=== PATIENT | female | born 1970 | race Caucasian/White ===

== ENCOUNTER 2023-10-18 09:39 | Emergency (ER) | payer BC, SELFPAY ==
[2023-10-18 09:52] VITALS: BP 149/79; PULSE 93; RESP 16; TEMP 38.7; O2SAT 98
--- NOTE | 2023-10-18 10:06 | ED.URI ---
HPI - URI/Sore Throat General Chief Complaint: Upper Respiratory Infection Stated Complaint: Sinus/Bodyaches Time Seen by Provider: 10/18/23 10:06 Source: patient and RN notes reviewed Mode of arrival: ambulatory Limitations: no limitations History of Present Illness HPI Narrative: 53-year-old female presented for complaint of cough, body aches, fevers and chills. Onset yesterday. Took ibuprofen this morning. He has been with similar symptoms. She denies shortness of breath, wheezing, nausea, vomiting, diarrhea. MD elicited complaint: cough Related Data Home Medications Medication Instructions Recorded Confirmed clonazepam 0.5 mg tablet mg 10/18/23 irbesartan 75 mg tablet mg 10/18/23 Allergies Allergy/AdvReac Type Severity Reaction Status Date / Time metoclopramide [From Reglan] Allergy Unknown Verified 10/18/23 09:57 doxycycline AdvReac Unknown Verified 10/18/23 09:57 theophylline AdvReac Vomiting Verified 10/18/23 09:56 Review of Systems Review of Systems: CONSTITUTIONAL: Endorses malaise, chills, sweats, fever EYES: Denies visual changes, redness, or discharge ENT: Reports rhinorrhea, Denies otalgia, sore throat CARDIOVASCULAR: Denies chest pain, palpitations, edema RESPIRATORY: Reports cough, Denies dyspnea GASTROINTESTINAL: Denies abdominal pain, nausea, vomiting, diarrhea SKIN: Denies rash or itching MUSCULOSKELETAL: Endorses myalgia NEUROLOGIC: Endorses headache PMF Past Medical History Medical History (Updated 10/18/23 @ 10:16 by Mica Lucero, TRACY) Hypertension Exam Narrative: GENERAL: mildly Ill-appearing, nontoxic no acute distress. EYES: PERRLA, conjunctivae clear ENT: Mucous membranes moist. TM pearly mendoza with dull light reflex bilaterally; no tragal tenderness. no drooling, no hoarseness, no trismus, uvula midline. No tripod positioning, muffled voice, soft palate or pharyngeal wall bulging NECK: Supple. No lymphadenopathy CHEST: Clear to auscultation, breath sounds equal. No wheezing, rhonchi, rales, or stridor. No respiratory distress, speaks in full sentences. HEART: Regular rate and rhythm. No murmur heard. SKIN: Warm, dry, no rash. NEURO: Alert and oriented x3. PSYCH: Normal mood and affect Course Course Emergency Course: Patient is aware of diagnosis, understands and agrees to treatment plan. Anticipatory guidance given. Patient agrees to follow-up as directed and is aware of reasons to seek care at the emergency department. Portions of this record may have been created with voice recognition software Level of Care: Express Care Visit Vital Signs Vital signs: Vital Signs Temperature 101.6 F H 10/18/23 09:52 Pulse Rate 93 10/18/23 09:52 Respiratory Rate 16 10/18/23 09:52 Blood Pressure 149/79 H 10/18/23 09:52 Pulse Oximetry 98 10/18/23 09:52 Oxygen Delivery Room Air 10/18/23 09:52 Temperature 101.6 F H 10/18/23 10:11 Pulse Rate 93 10/18/23 09:52 Respiratory Rate 16 10/18/23 09:52 Blood Pressure 149/79 H 10/18/23 09:52 Pulse Oximetry 98 10/18/23 09:52 Oxygen Delivery Room Air 10/18/23 09:52 reviewed MDM - URI/Sore Throat MDM Narrative Medical decision making narrative: FLU A POS. Discussed physical exam findings. Provided risks/benefits of tamiflu, she requests Rx. Advised supportive measures and signs/symptoms to go to the ER. Pt is appropriate for outpt treatment and f/u. Differential Diagnosis Differential diagnosis: Likely upper respiratory infection, sinusitis and viral infection Lab Data Labs: Influenza A Screen Positive Reference Range: Negative Influenza B Screen Negative Reference Range: Negative Discharge Plan Discharge Clinical Impression: Influenza Patient Disposition: Home, Self-Care Condition: Stable Instructions: Antibiotic Form, Influ
[2023-10-18 10:11] VITALS: TEMP 38.7
[2023-10-18] MEDS: ACETAMINOPHEN 500 MG TABLET 1000 MG PO (10:11)
[2023-10-18 10:36] VITALS: TEMP 37.5
== END 2023-10-18 10:36 | disposition home or self-care (01) ==
PROVIDERS: Emergency Provider Nurse Practitioner Family
DX: J11.1 Influenza due to unidentified influenza virus with other respiratory manifestations (principal); I10 Essential (primary) hypertension; Z79.899 Other long term (current) drug therapy
CPT/HCPCS: 87804; 99213; A9270; G0463

== ENCOUNTER 2024-09-16 12:20 | Emergency (ER) | payer BC, SELFPAY ==
--- NOTE | ~2024-09-16 | XR_ITS ---
Clinical Indication: Cough PA and lateral views of the chest: Comparison: None Findings: The lungs are clear, without evidence of focal consolidation or pleural effusion. Cardiome diastinal silhouette is within normal limits. Bones and soft tissues are unremarkable. Impression: Normal chest. Reviewed, dictated and finalized at [facility]. [employer]IST Impression: Normal chest.
[2024-09-16 12:34] VITALS: BP 115/63; PULSE 70; RESP 16; TEMP 36.4; O2SAT 98
--- NOTE | 2024-09-16 12:47 | ED_ITS ---
HPI - URI/Sore Throat General Chief Complaint: Upper Respiratory Infection Stated Complaint: cough, congested Time Seen by Provider: 09/16/24 12:47 Source: patient, RN notes reviewed and old records reviewed Mode of arrival: ambulatory Limitations: no limitations History of Present Illness HPI Narrative: Patient presents with complaints nasal and chest congestion. She reports that she has had a congested productive cough for 4 days. She reports that she has had some associated night sweats, lack of energy, and subjective fever. She has been taking multiple fuaq-owq-jleouul medications with minimal relief. Related Data Home Medications Medication Instructions Recorded Confirmed irbesartan 75 mg tablet 75 mg PO DAILY 10/18/23 Allergies Allergy/AdvReac Type Severity Reaction Status Date / Time metoclopramide [From Reglan] Allergy Unknown Verified 10/18/23 09:57 paroxetine [From Paxil] Allergy Hallucinati Verified 09/16/24 12:54 ng doxycycline AdvReac Unknown Verified 10/18/23 09:57 [id number] Reductase AdvReac Diarrhea Verified 09/16/24 12:54 Inhibitor theophylline AdvReac Vomiting Verified 10/18/23 09:56 Review of Systems Review of Systems: All systems reviewed & are unremarkable except as noted in HPI and below Constitutional: Constitutional: Reports no additional constitutional complaints ENT: Reports system reviewed and no additional complaints, except as documented and Reports nasal congestion Cardiovascular: Cardiovascular: Reports no additional cardiovascular complaints Respiratory: Respiratory: Reports no additional respiratory complaints, Reports chest congestion and Reports cough Gastrointestinal: Gastrointestinal: Reports no additional gastrointestinal complaints [facility] Past Medical History Medical History Hypertension Comments At the time of my signature, I reviewed and agree with the nursing past medical, surgical, social, and family history. There is no relevant family history pertinent to the patient complaint. Exam Const: General: cooperative, no acute distress, alert and awake Orientation/consciousness: oriented to person, oriented to place and oriented to time HENMT: Head: normal to inspection Ears: TM's normal bilaterally Mouth: Yes Normal oral and palatal mucosa present and Yes moist mucous membranes Resp: Effort & Inspection: normal respiratory effort and able to speak in complete sentences Auscultation: clear to auscultation bilaterally, no crackles, no rales, no rhonchi and no wheezes Other: congested cough noted Cardio: Palpation: normal PMI Rate: regular rate Rhythm: regular rhythm Heart sounds: S1 normal heart sound present and S2 normal heart sound present Neuro: General: oriented to person, oriented to place and oriented to time Cranial nerves: Yes CN's II-XII intact bilaterally Psych: Appearance: grossly normal Thought process: Normal thought process present Insight: Good insight present (Psych) Judgement: Good judgement present (Psych) Course Course Level of Care: Express Care Visit Vital Signs Vital signs: Vital Signs Temperature 97.6 F 09/16/24 12:34 Pulse Rate 70 09/16/24 12:34 Respiratory Rate 16 09/16/24 12:34 Blood Pressure 115/63 09/16/24 12:34 Pulse Oximetry 16 L 09/16/24 12:34 Oxygen Delivery Room Air 09/16/24 12:34 Temperature 97.6 F 09/16/24 12:34 Pulse Rate 70 09/16/24 12:34 Respiratory Rate 16 09/16/24 12:34 Blood Pressure 115/63 09/16/24 12:34 Pulse Oximetry 16 L 09/16/24 12:34 Oxygen Delivery Room Air 09/16/24 12:34 Reviewed MDM - URI/Sore Throat MDM Narrative Medical decision making narrative: Patient with reassuring physical exam, normal chest x-ray. Treat as bronchitis. Steroid burst, albuterol. Nontoxic appearing, no distress. Stable for discharge home. Discharge instructions reviewed with patient, as well as provided in writing per nursing staff. The instructions also include specific and strict return/GO TO THE ER as well as f/u information. All questions have been answered, and the patient deny any further questions with discharge and discharge plan. Some parts of this dictation were generated by voice recognition software and may contain typographical and/or grammatical inaccuracies. Differential Diagnosis Differential diagnosis: Likely upper respiratory infection, otitis media and bro nchitis Medical Records Attestation: I reviewed the patient's medical records. Imaging Data Attestation: I personally reviewed and interpreted this imaging study as follows: My impression: negative Radiologist's impression: [facility] [address] [place] [address] XRay Report Signed Patient: Martha Sellers : 1970 MR#: [id number] Age: 53 Acct:[id number] Loc: [facility] ADM Date: 09/16/24Attending Dr: Ordering Physician: Lesvia Orta FNP Date of Service: 09/16/24 Procedure(s): XR chest 2V Accession Number(s): [id number] cc: Lesvia Orta FNP~ Clinical Indication: Cough PA and lateral views of the chest: Comparison: None Findings: The lungs are clear, without evidence of focal consolidation or pleural effusion. Cardiomediastinal silhouette is within normal limits. Bones and soft tissues are unremarkable. Impression: Normal chest. Reviewed, dictated and finalized at location . INSTRUCTOR Dictated By: Noé Sanchez MD 09/16/24 1328 Signed By: <Electronically signed by Noé Sanchez MD in OV> Discharge Plan Discharge Clinical Impression: Bronchitis Patient Disposition: Home, Self-Care Condition: Stable Instructions: Antibiotic Form, Acute Bronchitis (ED) Additional Instructions: Take medications as prescribed, follow with primary care provider. Emergency department for new or worse symptoms Patient Language: [place] Citizen Prescriptions: New prednisone 50 mg tablet 50 mg PO DAILY Qty: 5 0RF albuterol sulfate [Ventolin HFA] 90 mcg/actuation HFA aerosol inhaler 2 puff inhalation QID PRN (Reason: shortness of breath or wheezing) Qty: 8.5 0RF No Action irbesartan 75 mg tablet 75 mg PO DAILY Follow-up/Referrals: PHYSICIAN NOT ON STAFF,NONSTAFF [Primary Care Provider] - Time of Disposition: 13:44
== END 2024-09-16 14:11 | disposition home or self-care (01) ==
PROVIDERS: Emergency Provider Nurse Practitioner Family
DX: J40 Bronchitis, not specified as acute or chronic (principal); I10 Essential (primary) hypertension
CPT/HCPCS: 71046; 99213; G0463

== ENCOUNTER 2025-08-20 14:30 | Emergency (ER) | payer SELFPAY ==
[2025-08-20 14:44] VITALS: BP 142/98; PULSE 70; RESP 16; TEMP 36.9; O2SAT 100
--- NOTE | 2025-08-20 15:04 | ED_ITS ---
HPI - URI/Sore Throat General Chief Complaint: Upper Respiratory Infection Stated Complaint: Sore Throat/Bodyaches Time Seen by Provider: 08/20/25 14:59 Source: patient, RN notes reviewed and old records reviewed Mode of arrival: ambulatory Limitations: no limitations History of Present Illness HPI Narrative: 54 year old female who presents to express care with complaints of scratchy sore throat, nasal congestion with drainage, post nasal drainage, cough which is productive at times. right ear feels congested with pressure,stomach ache mild nausea with no vomiting or diarrhea, and body aches. Patient reports that she has felt feverish has not checked her temperature and has noted some chills has been taking Tylenol. Patient does have asthma has inhaler has not had to use inhaler with illness. Patient reports that she has history of crohns and also colitis doesn't take Ibupofen becauses of that. MD elicited complaint: cough and sore throat Pertinent past history: pneumonia, asthma and other (bronchitis) Onset (ago): day(s) (started yesterday) Consistency: constant Pain scale (0-10): 3 Description of mucous: clear Able to tolerate fluids by mouth: Yes Treatments prior to arrival: acetaminophen Related Data Home Medications ?Medication ?Instructions ?Recorded ?Confirmed ?Last Taken ?Type irbesartan 75 mg tablet 75 mg PO DAILY 10/18/23 Unk nown History BD 08/20/25 Unknown History liraglutide 0.6 mg/0.1 mL (18 mg/3 mg subcut 08/20/25 Unknown History mL) subcutaneous pen injector Allergies Allergy/AdvReac Type Severity Reaction Status Date / Time metoclopramide (From Reglan) Allergy Unknown Verified 08/20/25 14:34 paroxetine (From Paxil) Allergy Hallucinati Verified 08/20/25 14:34 ng doxycycline AdvReac Unknown Verified 08/20/25 14:34 [id number] Reductase AdvReac Diarrhea Verified 08/20/25 14:34 Inhibitor theophylline AdvReac Vomiting Verified 08/20/25 14:34 Review of Systems Review of Systems: CONSTITUTIONAL: malaise, chills, sweats, has felt feverish no temp taken EYES: Denies visual changes, redness, or discharge. ENT: Reports rhinorrhea, congestion, sinus pain, right otalgia and scratchy sore throat CARDIOVASCULAR: Denies chest pain, palpitations, or edema. RESPIRATORY: Reports productive cough at times? Denies dyspnea. GASTROINTESTINAL: Denies abdominal pain, states stomach ache,+mild nausea,no vomiting,no diarrhea SKIN: Denies rash or itching. MUSCULOSKELETAL:reports myalgia. NEUROLOGIC: Denies headache. All systems reviewed & are unremarkable except as noted in HPI and below PMFSH Past Medical History Medical History Hx of Crohn's disease Colitis Pneumonia Asthma Bronchitis Hypertension Surgical History Surgical History Hx of cholecystectomy Hx of appendectomy History of hysterectomy Social History Social History Smoking status: Former smoker Additional smoking assessment comments: quit 2020 Alcohol intake: current Alcohol use details: social Substance use type: does not use Living arrangements: with family Gender identity (if verbalized by the patient): Female Comments At time of signature, agree with nursing past medical, surgical, social and family history. There is no relevant family history pertinent to the presenting complaint Exam Narrative: GENERAL: Mildly ill-appearing,nontoxic, well-nourished, obese, and in no acute distress. HEAD: Normocephalic EYES: PERRLA, conjunctivae clear ENT: Nares clear, turbinates edematous and erythematous, clear discharge, sinus pressure. Mucous membranes moist. TM pearly mendoza with dull light reflex bilaterally; no tragal tenderness reports pressure to right ear. Oropharynx eryt hematous without lesions. Tonsils not enlarged and without exudate, no drooling, no hoarseness, no trismus, uvula midline.post nasal drainage present. NECK: Supple. No lymphadenopathy CHEST: Clear to auscultation, breath sounds equal. No wheezing, rhonchi, rales, or stridor. No respiratory distress, speaks in full sentences.SAO2 100% on room air, occasional cough noted, HEART: Regular rate and rhythm. No murmur heard. SKIN: Warm, dry, no rash. NEURO: Alert and oriented x3. PSYCH: Normal mood and affect Course Course Emergency Course: Patient is aware of diagnosis, understands and agrees to treatment plan.? Anticipatory guidance given.? Patient agrees to follow-up as directed and is aware of reasons to seek care at the emergency department. Portions of this record may have been created with voice recognition software Level of Care: Express Care Visit Vital Signs Vital signs: Vital Signs Temperature 36.9 C 08/20/25 14:44 Pulse Rate 70 08/20/25 14:44 Respiratory Rate 16 08/20/25 14:44 Blood Pressure 142/98 H 08/20/25 14:44 Pulse Oximetry 100 08/20/25 14:44 Oxygen Delivery Room Air 08/20/25 14:44 Temperature 36.9 C 08/20/25 14:44 Pulse Rate 70 08/20/25 14:44 Respiratory Rate 16 08/20/25 14:44 Blood Pressure 142/98 H 08/20/25 14:44 Pulse Oximetry 100 08/20/25 14:44 Oxygen Delivery Room Air 08/20/25 14:44 Reviewed MDM - URI/Sore Throat MDM Narrative Medical decision making narrative: Differential diagnosis considered: [place] virus, strep pharyngitis, allergic rhinitis, upper respiratory tract infection, sinusitis, rhinosinusitis, nasopharyngitis. viral pharyngitis, otitis media, otitis externa, pneumonia, bronchitis, viral cough syndrome, viral syndrome, and influenza.? Exam findings show no acute concerns or changes; patient is non-toxic appearing and is in no distress.? Patient is appropriate for outpatient treatment and follow-up. Differential Diagnosis Differential diagnosis: Likely upper respiratory infection, viral infection, influenza, pharyngitis and other (COVID) Medical Records Attestation: I reviewed the patient's medical records. Lab Data Attestation: I reviewed the patient's lab results. Lab results narrative: Influenza A negative, Influenza B negative, COVID antigen negative, Strep screen negative, Strep screen negative strep culture sent Labs: Lab Results 08/20/25 Range/Units 14:41 POC Influenza A Ag Negative (Negative) POC Influenza B Ag Negative (Negative) POC SARS CoV-2 Ag Negative (Negative) POC Grp A Strep Screen Negative (Negative) reviewed Critical Care Time Critical Care Time Critical Care Time: No Discharge Plan Discharge Clinical Impression: Upper respiratory infection Qualifiers: URI type: unspecified URI Qualified Code(s): J06.9 - Acute upper respiratory infection, unspecified Patient Disposition: Home Condition: Stable Instructions: Antibiotic Form, Upper Respiratory Infection (ED) Additional Instructions: Increase fluids especially juices and water [id number] cough and cold medicine of your choice for your symptoms Zyrtec Claritin or Carmen daily include Coricidin brand decongestant, Flonase nasal spray as ordered Continue your inhaler/nebulizer as directed Steroids as directed--take with food heat to the face 20-30 minutes 4-6 times a day for pain Salt water gargles, throat lozenges or throat sprays as desired Your strep test today was negative. A throat culture will be sent to the laboratory for further testing. IF the test is positive, you will receive a phone call within 48 hours and an appropriate antibiotic will be initiated at that time. Tylenol for any fever pain for package instruction If your symptoms persist, change or worsen significantly before you can contact your personal physician then please, without delay, go to the emergency department for further evaluation. Follow-up with PCP in 7-10 days or sooner if needed Follow up with PCP soon in regards to your blood pressure which is elevated above threshold for referral. Blood pressure above 120/80 may indicate pre- hypertension.142/98 Patient Language: Turk[place] Prescriptions: New fluticasone propionate [Flonase Allergy Relief] 50 mcg/actuation spray,suspension 1 spray intranasal Q12H Qty: 16 0RF Rx Instructions: administer into each nostril methylprednisolone [Medrol (Sonu)] 4 mg tablets,dose pack See Rx Instructions .ROUTE .COMPLEX Qty: 21 0RF Rx Instructions: orally per package directions take with food No Action albuterol sulfate [Ventolin HFA] 90 mcg/actuation HFA aerosol inhaler 2 puff inhalation QID PRN (Reason: shortness of breath or wheezing) Qty: 8.5 0RF irbesartan 75 mg tablet 75 mg PO DAILY BD liraglutide 0.6 mg/0.1 mL (18 mg/3 mL) pen injector SUBCUT Follow-up/Referrals: PHYSICIAN,YEAST TENDER [Primary Care Provider, Internal Medicine] Time of Disposition: 15:13 Quality [place] Coma Scale Eyes: Open Verbal: Oriented and Alert Motor: Follows Commands [place] Coma Total Score: 15
[2025-08-20 15:22] LABS: EDCOVIDSCREEN Negative (Negative); EDINFLUASCREEN Negative (Negative); EDINFLUBSCREEN Negative (Negative); EDSTREPNEGPOS1 Negative (Negative)
== END 2025-08-20 15:15 | disposition home or self-care (01) ==
PROVIDERS: Emergency Provider Registered Nurse
DX: J06.9 Acute upper respiratory infection, unspecified (principal); I10 Essential (primary) hypertension; Z87.891 Personal history of nicotine dependence; Z20.822 Contact with and (suspected) exposure to COVID-19
CPT/HCPCS: 87081; 87426; 87804; 87880; 99213; G0463